=== PATIENT | female | born 1950 | race Asian ===

== ENCOUNTER 2023-07-28 14:58 | Emergency (ER) | payer BC, MEDICAID ==
[~2023-07-28] VITALS: Ht 157.5 cm; Wt 59.0 kg
[2023-07-28 15:11] VITALS: BP 126/82; PULSE 76; RESP 18; TEMP 98.1; O2SAT 98
[2023-07-28 16:09] LABS: BASOPHILS # (AUTO) 0.1 K/uL (0.00-0.22); BASOPHILS % (AUTO) 0.7 % (0.0-2.0); HEMATOCRIT 34.6 % (36-48); LYMPHOCYTES # (AUTO) 0.9 K/uL (2.5-16.5); LYMPHOCYTES % (AUTO) 6.8 % (20.5-51.1); MEAN CORPUSCULAR HEMOGLOBIN 29 pg (27-31); MEAN CORPUSCULAR HGB CONC 32 g/dL (33-37); MEAN CORPUSCULAR VOLUME 90.3 fL (80-94); MONOCYTES # (AUTO) 0.4 K/uL (0.8-1.0); MONOCYTES % (AUTO) 2.8 % (1.7-9.3); NEUTROPHILS # (AUTO) 11.6 K/uL (1.8-7.7); NEUTROPHILS % (AUTO) 89.7 % (42.2-75.2); PLATELET COUNT (AUTO) 427 K/uL (140-450); RED BLOOD CELL COUNT(AUTO) 3.84 MIL/uL (4.20-5.40); RED CELL DISTRIBUTION WIDTH 14.3 % (11.6-13.7)
[2023-07-28] MEDS ORDERED: ALUMINUM HYD/MAG/SIMETHICONE 30 ML UDC PO ONE (16:10)
[2023-07-28] MEDS ORDERED: ONDANSETRON 4 MG ODT PO ONE (16:10)
[2023-07-28 16:39] LABS: ALANINE AMINOTRANSFERASE 34 U/L (12-78); ALBUMIN 3.8 g/dL (3.4-5.0); ALKALINE PHOSPHATASE 114 U/L (50-136); ANION GAP 15.5 (8-16); ASPARTATE AMINOTRANSFERASE 25 U/L (15-37); CALCIUM 8.8 mg/dL (8.5-10.1); CARBON DIOXIDE 23.4 mmol/L (21-32); CHLORIDE 101 mmol/L (98-107); CREATININE 1.2 mg/dL (0.6-1.3); GLUCOSE 134 mg/dL (74-106); LIPASE 118 U/L (73-393); SODIUM SERUM 137 mmol/L (136-145); TOTAL BILIRUBIN 0.2 mg/dL (0.0-1.0); TOTAL PROTEIN, SERUM 7.2 g/dL (6.4-8.2); UREA NITROGEN, BLOOD 33 mg/dL (7-18)
[2023-07-28 16:52] LABS: POTASSIUM 2.9 mmol/L (3.5-5.1)
[2023-07-28] MEDS ORDERED: POTASSIUM CHLORIDE 10 MEQ TABER PO ONE (16:55)
[2023-07-28 17:52] LABS: FLU A ANTIGEN negative (NEGATIVE); FLU B ANTIGEN negative (NEGATIVE)
[2023-07-28] MEDS ORDERED: FAMO-90 PO (18:23)
[2023-07-28] MEDS ORDERED: ONDA4ODT2 PO (18:23)
[2023-07-28] MEDS ORDERED: MAG355OR2 PO (18:23)
[2023-07-28 18:36] VITALS: BP 148/70; PULSE 74; RESP 20; TEMP 98.2; O2SAT 98
== END 2023-07-28 18:36 | disposition home or self-care (01) ==
LOC: MED 14:58
DX: K29.70 Gastritis, unspecified, without bleeding (principal); R11.2 Nausea with vomiting, unspecified; K83.8 Other specified diseases of biliary tract; D72.829 Elevated white blood cell count, unspecified; E87.6 Hypokalemia; N83.201 Unspecified ovarian cyst, right side; E11.9 Type 2 diabetes mellitus without complications; Z79.899 Other long term (current) drug therapy; Z20.822 Contact with and (suspected) exposure to COVID-19
CPT/HCPCS: 36415; 74176; 80053; 83690; 84484; 85025; 87426; 87804; 93005; 99285; Q0162